=== PATIENT | female | born 1990 | race Caucasian/White ===

== ENCOUNTER 2018-04-28 19:44 | Emergency (ER) | payer MEDICAID ==
[2018-04-28 20:05] VITALS: BP 109/68
--- NOTE | 2018-04-28 20:10 | UC ---
Skin Complaint HPI - HPI Summary HPI Summary: 28 yo female presents with ?bug bite to right hip first noticed 2 days ago - getting increasingly bigger and more red. Has not been applying anything OTC. Denies fever/chills - History of Current Complaint Chief Complaint: UCSkin Time Seen by Provider: 04/28/18 20:10 Stated Complaint: TICK BITE Hx Obtained From: Patient Hx Last Menstrual Period: 04/19/18 Onset/Duration: Gradual Onset Current Severity: None Pain Intensity: 0 - Allergy/Home Medications Allergies/Adverse Reactions: Allergies Allergy/AdvReac Type Severity Reaction Status Date / Time No Known Allergies Allergy Verified 04/28/18 20:06 Home Medications: Home Medications Biotin 300 mcg PO DAILY 04/28/18 [History Confirmed 04/28/18] Review of Systems Constitutional: Negative Skin: Other - ?bug bite right hip Respiratory: Negative Cardiovascular: Negative Gastrointestinal: Negative Neurovascular: Negative Neurological: Negative Psychological: Negative All Other Systems Reviewed And Are Negative: Yes PMH/Surg Hx/FS Hx/Imm Hx - Additional Past Medical History Additional PMH: None Previously Healthy: Yes - Surgical History Surgical History: None Surgery Procedure, Year, and Place: none - Family History Known Family History: Negative: Cardiac Disease, Hypertension, Diabetes - Social History Occupation: Employed Full-time Lives: Alone Alcohol Use: Weekly Alcohol Amount: 1/2 Substance Use Type: None Smoking Status (MU): Never Smoked Tobacco Physical Exam - Summary Physical Exam Summary: GENERAL: NAD. WDWN. No pain distress. SKIN: Right hip: there is a 2.0cm diameter of mild erythema with central 1mm area of superficial skin loss. No streaking, bleeding, or drainage. No warmth. NECK: Supple. Nontender. No lymphadenopathy. CHEST: No accessory muscle use. Breathing comfortably and in no distress. CV: RRR. Without m/r/g. NEURO: Alert. CN II-XII grossly intact. PSYCH: Age appropriate behavior. Triage Information Reviewed: Yes Vital Signs: Initial Vital Signs Temp 98.1 F 04/28/18 19:59 Pulse 74 04/28/18 19:59 Resp 16 04/28/18 19:59 BP 109/68 04/28/18 19:59 Pulse Ox 100 04/28/18 19:59 Course/Dx - Course Course Of Treatment: Appears consistent with tick bite. Pt says that she never saw a tick, but was concerned because some of her friends have had lyme disease in the past. Will treat with 200mg prophylactic dose in clinic tonight and have her monitor for symptoms of lyme. - Diagnoses Provider Diagnoses: Tick bite right hip Discharge - Sign-Out/Discharge Documenting (check all that apply): Discharge/Admit/Transfer - Discharge Plan Condition: Stable Disposition: HOME Patient Education Materials: Lyme Disease (ED), Tick Bite (ED) Referrals: Christian May MD [Primary Care Provider] - Additional Instructions: If you develop a fever, shortness of breath, chest pain, new or worsening symptoms - please call your PCP or go to the ED. - Billing Disposition and Condition Condition: STABLE Disposition: Home
[2018-04-28] MEDS ORDERED: DOXYcycline CAP(*) 100 MG PO ONE (20:24)
== END 2018-04-28 20:38 | disposition home or self-care (01) ==
LOC: UCEAST 19:44
DX: S70.261A Insect bite (nonvenomous), right hip, initial encounter (principal); W57.XXXA Bitten or stung by nonvenomous insect and other nonvenomous arthropods, initial encounter; Y92.9 Unspecified place or not applicable
CPT/HCPCS: 99212; A9270-GY; G0463

== ENCOUNTER 2018-12-16 00:46 | Emergency (ER) | payer OTHER ==
[2018-12-16 01:59] LABS: ABS Basophils 0.1 10^3/ul (0-0.2); ABS Eosinophils 0.2 10^3/ul (0-0.6); ABS Monocytes 0.5 10^3/ul (0-0.8); ABS Neutrophils 5.3 10^3/ul (1.5-7.7); ABS Nucleated RBC 0 10^3/ul; Eosinophil % 2.6 %; Hematocrit 39 % (35-47); Hemoglobin 13.2 g/dl (12.0-16.0); Lymphocyte % 24.6 %; Mean Corpuscular HGB Conc 34 g/dl (31-36); Mean Corpuscular Hemoglobin 31 pg (27-31); Mean Corpuscular Volume 91 fL (80-97); Mean Platelet Volume 7.9 fL (7.4-10.4); Nucleated Red Blood Cells % 0; Platelet Count 267 10^3/ul (150-450); Red Blood Count 4.29 10^6/ul (4.00-5.40); Red Cell Distribution Width 12 % (10.5-15); White Blood Count 8.1 10^3/ul (3.5-10.8)
--- NOTE | 2018-12-16 02:17 | ED ---
Abdominal Pain/Female - HPI Summary HPI Summary: Patient is a 28 y/o F presenting to ED with complaints of lower abdominal pain onsetting at 1900 12/15/18, got slightly better, and then became sharp and shooting at around 0000 today. In the room, she notes that pain has begun to subside. Patient states that she had temp of 100 F upon coming to ED, states that this is higher than normal for her. N/V endorsed. No dysuria, no hematruia , no back pain. No PSHx of abdominal surgery. PMHx of ovarian cysts with ruptured ovarian cysts last January and another 7 cm ruptured cyst about a month ago. Patient takes prescribed Adderall. LNMP was 11/23/18, patient states that it is "not impossible" that she is . On triage, pain is rated 7/10, nothing is noted to aggravate/alleviate Sx. Home medications and allergies are reviewed. - History of Current Complaint Chief Complaint: EDAbdPain Stated Complaint: ABD PAIN Hx Obtained From: Patient Hx Last Menstrual Period: 04/19/18 Onset/Duration: Lasting Hours - onset 1900 12/15/18, Still Present Timing: Hours - onset 19012/15/18 Severity Initially: Severe Severity Currently: Mild - patient states that pain is subsiding Pain Intensity: 7 - on triage Pain Scale Used: 0-10 Numeric - 7/10 on triage Location: Other - lower Character: Sharp, Other: - shooting Aggravating Factor(s): Nothing Alleviating Factor(s): Nothing Associated Signs and Symptoms: Positive: Nausea, Vomiting, Other: - no dysuria, no hematuria. Negative: Fever, Back Pain, Decreased Appetite Allergies/Adverse Reactions: Allergies Allergy/AdvReac Type Severity Reaction Status Date / Time No Known Allergies Allergy Verified 12/16/18 00:49 Home Medications: Home Medications Amphetamine/Dextroamph ER(NF) [Adderal XR (NF)] 5 mg PO DAILY WITH MEAL [History Confirmed 12/16/18] PMH/Surg Hx/FS Hx/Imm Hx History: Reports: Other Problems/Disorders - ovarian cysts Musculoskeletal History: Denies: Hx Osteoporosis Psychiatric History: Reports: Hx Eating Disorder - Surgical History Surgery Procedure, Year, and Place: none Infectious Disease History: No Infectious Disease History: Denies: Traveled Outside the [place] in Last 30 Days - Family History Known Family History: Negative: Cardiac Disease, Hypertension, Diabetes - Social History Alcohol Use: Weekly Alcohol Amount: 1/2 Substance Use Type: Reports: None Smoking Status (MU): Never Smoked Tobacco Review of Systems Negative: Fever Positive: Abdominal Pain, Vomiting, Nausea Negative: dysuria, hematuria Musculoskeletal: Other - NEGATIVE - BACK PAIN All Other Systems Reviewed And Are Negative: Yes Physical Exam - Summary Physical Exam Summary: Appearance: Well appearing, no pain distress Skin: warm, dry, reflects adequate perfusion Head/face: normal Eyes: EOMI, MARIBEL ENT: mucous membranes moist Neck: supple, non-tender Respiratory: CTA, breath sounds present Cardiovascular: RRR, pulses symmetrical Abdomen: non-tender, soft Bowel Sounds: present Musculoskeletal: normal, strength/ROM intact Neuro: normal, sensory motor intact, A&Ox3 Triage Information Reviewed: Yes Vital Signs On Initial Exam: Initial Vitals Temp Pulse Resp BP Pulse Ox 100.0 F 90 16 105/69 98 12/16/18 00:47 12/16/18 00:47 12/16/18 00:47 12/16/18 00:47 12/16/18 00:47 Vital Signs Reviewed: Yes Diagnostics - Vital Signs Vital Signs Temp Pulse Resp BP Pulse Ox 12/16/18 02:01 89 121/68 100 12/16/18 02:00 84 98 12/16/18 00:47 100.0 F 90 16 105/69 98 - Laboratory Lab Results: Lab Results 12/16/18 Range/Units 01:47 WBC 8.1 (3.5-10.8) 10^3/ul RBC 4.29 (4.00-5.40) 10^6/ul Hgb 13.2 (12.0-16.0) g/dl Hct 39 (35-47) % MCV 91 (80-97) fL MCH 31 (27-31) pg MCHC 34 (31-36) g/dl RDW 12 (10.5-15) % Plt Count 267 (150-450) 10^3/ul MPV 7.9 (7.4-10.4) fL Neut % (Auto) 66.0 % Lymph % (Auto) 24.6 % [place] % (Auto) 6.0 % Eos % (Auto) 2.6 % Baso % (Auto) 0.8 % Absolute Neuts (auto) 5.3 (1.5-7.7) 10^3/ul Absolute Lymphs (auto) 2.0 (1.0-4.8) 10^3/ul Absolute Monos (auto) 0.5 (0-0.8) 10^3/ul Absolute Eos (auto) 0.2 (0-0.6) 10^3/ul Absolute Basos (auto) 0.1 (0-0.2) 10^3/ul Absolute Nucleated RBC 0 10^3/ul Nucleated RBC % 0 Result Diagrams: 12/16/18 01:47 12/16/18 01:47 Lab Statement: Any lab studies that have been ordered have been reviewed, and results considered in the medical decision making process. Re-Evaluation - Re-Evaluation First Eval Re-Evaluation Time: 02:22 Change: Unchanged Comment: Bedside US done by Dr. Valdivia, no large cyst observed, limited exam otherwise. Second Eval Re-Evaluation Time: 03:08 Comment: Results of labs discussed with patient. Patient notes that she is scheduled for a US in a week. OBGYN is Dr. Uriarte. Patient is agreeable with discharge to home. Abdominal Pain Fem Course/Dx - Course Course Of Treatment: Nurse's notes reviewed. Patient with low abdominal/pelvic discomfort now greatly improved. She has a benign abdominal exam and benign laboratories including urinalysis. She is not . There is no ultrasound available at this hour. She does have outpatient ultrasound scheduled this week. She has history of ovarian cyst in the past which are being followed with this ultrasound. This seems a reasonable diagnosis. Though torsion is a possibility we would expect some laboratory abnormalities and even some residual discomfort even with intermittent torsion. She was given precautions regarding this fact and will return should she abruptly worsen. - Diagnoses Differential Diagnosis: Positive: Ovarian Cyst, Pancreatitis, , Renal Colic, Urinary Tract Infection, Other - Ovarian torsion Provider Diagnoses: Abdominal pain, Hx of ovarian cyst Discharge - Sign-Out/Discharge Documenting (check all that apply): Patient Departure - discharge Patient Received Moderate/Deep Sedation with Procedure: No - NO PROCEDURES DONE - Discharge Plan Condition: Improved Disposition: HOME Prescriptions: Naproxen [Naproxen 500 mg tab] 500 mg PO BID PRN #12 tablet PRN Reason: Pain Patient Education Materials: Acute Abdominal Pain (ED) Referrals: Rocío Uriarte MD [Medical Doctor] - Christian May MD [Primary Care Provider] - Additional Instructions: Drink plenty of fluids. Return with severe pain, vomiting, worse, new symptoms or other concerns. Call your [facility] on Monday for prompt follow-up. Outpatient ultrasound as scheduled. - Billing Disposition and Condition Condition: IMPROVED Disposition: Home - Attestation Statements Document Initiated by Scribe: Yes Documenting Scribe: PHOENIX RIOS Provider For Whom Quentin is Documenting (Include Credential): MARIBEL VALDIVIA MD Scribe Attestation: IPHOENIX , scribed for MARIBEL VALDIVIA MD on 12/16/18 at 0521. Scribe Documentation Reviewed: Yes Provider Attestation: The documentation as recorded by the PHOENIX hess accurately reflects the service I personally performed and the decisions made by me, MARIBEL VALDIVIA MD Status of Scribe Document: Viewed
[2018-12-16 02:28] LABS: ALT 8 U/L (7-52); AST 13 U/L (13-39); Albumin 4.7 g/dL (3.2-5.2); Albumin/Globulin Ratio 1.6 (1-3); Alkaline Phosphatase 44 U/L (34-104); Anion Gap 5 mmol/L (2-11); BUN/Creatinine Ratio 14.1 (8-20); Blood Urea Nitrogen 13 mg/dL (6-24); C Reactive Protein < 1.00 mg/L (<8.01); CO2 Carbon Dioxide 27 mmol/L (22-32); Calcium 9.5 mg/dL (8.6-10.3); Chloride 104 mmol/L (101-111); EGFR African American 86.7 (>60); EGFR Non-African American 71.7 (>60); Glucose 98 mg/dL (70-100); Potassium 4.2 mmol/L (3.5-5.0); Sodium 136 mmol/L (135-145); Total Protein 7.7 g/dL (6.4-8.9)
[2018-12-16 02:32] LABS: HCG Pregnancy < 0.60 mIU/mL
[2018-12-16 02:39] LABS: Urine Appearance Clear; Urine Bacteria Absent (Absent); Urine Bilirubin Negative (Negative); Urine Blood 1+ (Negative); Urine Color Straw; Urine Glucose Negative (Negative); Urine Ketones Negative (Negative); Urine Nitrite Negative (Negative); Urine Protein Negative (Negative); Urine Red Blood Cell Trace(0-2/hpf) (Absent); Urine Specific Gravity 1.006 (1.010-1.030); Urine Squamous Epithelial Cell Present (Absent); Urine Urobilinogen Negative (Negative); Urine White Blood Cell Absent (Absent)
[2018-12-16] MEDS ORDERED: Naproxen TAB* 250 MG PO ONE (03:09)
[2018-12-16 03:12] VITALS: BP 113/72
== END 2018-12-16 03:23 | disposition home or self-care (01) ==
LOC: ED 00:46
DX: R10.9 Unspecified abdominal pain (principal); N83.209 Unspecified ovarian cyst, unspecified side; R11.2 Nausea with vomiting, unspecified
CPT/HCPCS: 36415; 80053; 81003; 81015; 83605; 83690; 84702; 85025; 86140; 99282; A9270-GY